=== PATIENT | male | born 1990 | race African-American/Black ===

== ENCOUNTER 2017-06-26 11:29 | Emergency (ER) | payer OTHER ==
[2017-06-26] MEDS: ONDANSETRON 4 MG ORAL DISINTEGRATING TAB (S0181) PO (12:00)
== END 2017-06-26 12:16 | disposition home or self-care (01) ==
LOC: M ED 11:29
DX: R05 Cough (principal); R50.9 Fever, unspecified; R11.2 Nausea with vomiting, unspecified; R19.7 Diarrhea, unspecified; Z87.891 Personal history of nicotine dependence; Z88.0 Allergy status to penicillin
CPT/HCPCS: 99282